=== PATIENT | male | born 1965 | race African-American/Black ===

== ENCOUNTER 2022-12-07 10:36 | Inpatient (IN) | payer OTHER ==
[2022-12-07] MEDS ORDERED: LACTATED RINGERS SOLUTION 1000 ML INFUS.BAG IV ONE ×3 (11:29→20:43)
[2022-12-07] MEDS ORDERED: ONDANSETRON 4 MG/2 ML VIAL IVPUSH ONE (11:31)
[2022-12-07] MEDS ORDERED: ONDANSETRON 4 MG/2 ML VIAL ONE (11:53)
[2022-12-07 12:18] LABS: VENOUS BASE EXCESS -14.8 mmol/L (-2-2); VENOUS PCO2 35.1 mmHg (38-52)
[2022-12-07 12:19] LABS: VENOUS PH 7.171 (7.310-7.410)
[2022-12-07 12:21] LABS: BASO % 0.4 % (0-2.0); HEMATOCRIT 51.9 % (35.4-49); HEMOGLOBIN 17.8 GM/dL (11.7-16.9); LYMPH % 12.2 % (8-40); MCH 28.2 pg (25.7-33.7); MCHC 34.3 g/dl (32.0-35.9); MEAN CELL VOLUME 82.1 fl (80-96); MEAN PLT VOLUME 9.9 fl (7.5-11.1); MONO % 4.8 % (3.8-10.2); NEUT % 82.6 % (42.8-82.8); PLATELET COUNT 412 10^3/uL (134-434); RBC 6.33 M/mm3 (4.00-5.60); RDW 14.6 % (11.9-15.9); WHITE BLOOD COUNT 10.5 K/mm3 (4.0-10.0)
[2022-12-07 12:46] LABS: CHLORIDE 105 mmol/L (98-107); SODIUM 141 mmol/L (136-145)
[2022-12-07] MEDS ORDERED: SODIUM CHLORIDE 1,000 ML with POTASSIUM CHLORIDE 30 MEQ IV STA (12:49)
[2022-12-07 12:53] LABS: ALBUMIN 3.8 g/dl (3.4-5.0); ANION GAP 22 MMOL/L (8-16); BLOOD UREA NITROGEN 34.8 mg/dL (7-18); CALCIUM 10.6 mg/dL (8.5-10.1); CO2 14 mmol/L (21-32); LACTIC ACID 3.5 mmol/L (0.4-2.0); MAGNESIUM 2.6 mg/dL (1.8-2.4)
[2022-12-07] MEDS ORDERED: POTASSIUM CHLORIDE 30 MEQ in SODIUM CHLORIDE 1,000 ML IV SCH (12:53)
[2022-12-07 12:56] LABS: CREATININE 1.9 mg/dL (0.55-1.3); PHOSPHOROUS 4.6 mg/dL (2.5-4.9); SGOT/AST 6 U/L (15-37); SGPT/ALT 19 U/L (13-61)
[2022-12-07 12:58] LABS: TOT PROT 8.9 g/dl (6.4-8.2)
[2022-12-07 13:00] LABS: ALK PHOS 139 U/L (45-117); BILIRUBIN,TOTAL 0.9 mg/dL (0.2-1)
[2022-12-07 13:06] LABS: GLUCOSE,RANDOM 468 mg/dL (74-106)
[2022-12-07] MEDS ORDERED: DEXTROSE 50%-WATER - 25 GM/50 ML VIAL IVPUSH PRN (13:16)
[2022-12-07] MEDS ORDERED: INSULIN REGULAR 100 UNITS in SODIUM CHLORIDE 99 ML IVPB SCH ×3 (13:30→18:35)
[2022-12-07 13:54] LABS: HIV INTERPRETATION NEGATIVE (NEGATIVE)
[2022-12-07] MEDS ORDERED: INSULIN REGULAR HUMAN 100 UNITS/ML *VIAL* (FOR IVP) IVPUSH ONE (14:53)
[2022-12-07] MEDS ORDERED: SODIUM CHLORIDE 1,000 ML IV SCH (15:15)
[2022-12-07 15:38] LABS: LACTIC ACID 2.8 mmol/L (0.4-2.0)
[2022-12-07 16:01] LABS: EPI CELLS 6 /uL (0-25.1); HYALINE CASTS 0 /uL (0-3.1); URINE APPEARANCE CLEAR; URINE BACTERIA 199 /uL (0-1359); URINE BILIRUBIN NEGATIVE (NEGATIVE); URINE COLOR YELLOW; URINE GLUCOSE (UA) 3+ (NEGATIVE); URINE KETONE 3+ (NEGATIVE); URINE LEUK ESTERASE TRACE (NEGATIVE); URINE NITRITE NEGATIVE (NEGATIVE); URINE PROTEIN 1+ (NEGATIVE); URINE RBC 115 /uL (0-23.9); URINE UROBILINOGEN 0.2 mg/dL (0.2-1.0); URINE WBC 232 /uL (0-25.8)
[2022-12-07 17:26] LABS: ARTERIAL BLD GAS O2 SATURATION 96.2 % (95-98); ARTERIAL BLOOD GAS PO2 91.5 mmHg (80-100); ARTERIAL BLOOD GAS pH 7.284 (7.350-7.450)
[2022-12-07 17:27] LABS: ALLENS TEST POSITIVE
[2022-12-07] MEDS ORDERED: DEXTROSE 5%-0.45% SALINE 1,000 ML IV SCH (18:45)
[2022-12-07] MEDS ORDERED: SODIUM CHLORIDE 0.45% 1,000 ML IV SCH (18:45)
[2022-12-07 19:40] LABS: BLOOD UREA NITROGEN 32.8 mg/dL (7-18); CALCIUM 9.9 mg/dL (8.5-10.1)
[2022-12-07 19:41] LABS: ALBUMIN 3.4 g/dl (3.4-5.0); BLOOD UREA NITROGEN 32.5 mg/dL (7-18); CALCIUM 9.9 mg/dL (8.5-10.1)
[2022-12-07 19:44] LABS: CREATININE 1.5 mg/dL (0.55-1.3)
[2022-12-07 19:45] LABS: BILIRUBIN,TOTAL 0.5 mg/dL (0.2-1); CREATININE 1.5 mg/dL (0.55-1.3)
[2022-12-07] MEDS: INSULIN (LEVEMIR) 100 UNITS/ML UNITS SQ SCH (21:08)
[2022-12-07] MEDS: HEPARIN NA (PORCINE) 5,000 UNITS/ML 1ML VIAL SQ SCH (21:16)
[2022-12-07] MEDS: MUPIROCIN 2% TOPICAL OINTMENT FOR DECOLONIZATION NS SCH (21:16)
[2022-12-07] MEDS: CHLORHEXIDINE GLUCONATE 4% CLEANSER FOR DECOLONIZATION TP SCH (21:17)
[2022-12-07] MEDS ORDERED: INSULIN (LEVEMIR) 100 UNITS/ML UNITS SQ SCH (22:00)
[2022-12-08] MEDS ORDERED: INSULIN (NOVOLOG) ASPART 100 UNITS/ML 10ML VIAL SQ ONE (00:54)
[2022-12-08] MEDS: NYSTATIN 500,000 UNITS/5 ML SUSPENSION PO SCH ×5 (01:05→23:45)
[2022-12-08] MEDS: INSULIN (LEVEMIR) 100 UNITS/ML UNITS SQ SCH ×2 (06:23→21:35)
[2022-12-08] MEDS: HEPARIN NA (PORCINE) 5,000 UNITS/ML 1ML VIAL SQ SCH ×3 (06:23→21:35)
[2022-12-08] MEDS: INSULIN SLIDING SCALE (NOVOLOG) 1 VIAL SQ SCH ×4 (06:23→21:36)
[2022-12-08 07:18] LABS: BASO % 0.5 % (0-2.0); EOS % 0.2 % (0-4.5); HEMATOCRIT 41.1 % (35.4-49); HEMOGLOBIN 14.6 GM/dL (11.7-16.9); LYMPH % 28.5 % (8-40); MCH 28.3 pg (25.7-33.7); MCHC 35.5 g/dl (32.0-35.9); MEAN CELL VOLUME 79.6 fl (80-96); MEAN PLT VOLUME 9.5 fl (7.5-11.1); MONO % 9.9 % (3.8-10.2); NEUT % 60.9 % (42.8-82.8); PLATELET COUNT 314 10^3/uL (134-434); RBC 5.17 M/mm3 (4.00-5.60); RDW 14.6 % (11.9-15.9)
[2022-12-08 07:40] LABS: CALCIUM 9.6 mg/dL (8.5-10.1); MAGNESIUM 2.3 mg/dL (1.8-2.4)
[2022-12-08 07:42] LABS: CREATININE 1.3 mg/dL (0.55-1.3)
[2022-12-08 07:43] LABS: PHOSPHOROUS 1.2 mg/dL (2.5-4.9)
[2022-12-08 07:44] LABS: BILIRUBIN,TOTAL 0.7 mg/dL (0.2-1); TOT PROT 6.8 g/dl (6.4-8.2)
[2022-12-08] MEDS: MUPIROCIN 2% TOPICAL OINTMENT FOR DECOLONIZATION NS SCH ×2 (11:00→21:35)
[2022-12-08] MEDS ORDERED: POTASSIUM PHOSPHATE 30 MM in DEXTROSE 5%-WATER - 500 ML IVPB ONE (15:14)
[2022-12-08 15:41] VITALS: BMI 20.9
[2022-12-08] MEDS: CHLORHEXIDINE GLUCONATE 4% CLEANSER FOR DECOLONIZATION TP SCH (21:35)
[2022-12-09] MEDS: NYSTATIN 500,000 UNITS/5 ML SUSPENSION PO SCH ×3 (06:40→17:32)
[2022-12-09] MEDS: HEPARIN NA (PORCINE) 5,000 UNITS/ML 1ML VIAL SQ SCH ×3 (06:40→22:04)
[2022-12-09] MEDS: INSULIN SLIDING SCALE (NOVOLOG) 1 VIAL SQ SCH ×4 (06:41→22:06)
[2022-12-09] MEDS: INSULIN (LEVEMIR) 100 UNITS/ML UNITS SQ SCH ×2 (06:41→22:05)
[2022-12-09] MEDS: MUPIROCIN 2% TOPICAL OINTMENT FOR DECOLONIZATION NS SCH ×2 (09:47→22:00)
[2022-12-09] MEDS ORDERED: DULoxetine HCL 20 MG CAPSULE.DR PO SCH (10:00)
[2022-12-09 11:09] LABS: HEMATOCRIT 38.2 % (35.4-49); HEMOGLOBIN 13.5 GM/dL (11.7-16.9); MCH 28.3 pg (25.7-33.7); MCHC 35.4 g/dl (32.0-35.9); MEAN PLT VOLUME 9.5 fl (7.5-11.1); PLATELET COUNT 233 10^3/uL (134-434); RBC 4.77 M/mm3 (4.00-5.60); WHITE BLOOD COUNT 5.8 K/mm3 (4.0-10.0)
[2022-12-09 11:34] LABS: CALCIUM 8.8 mg/dL (8.5-10.1)
[2022-12-09 11:35] LABS: ALBUMIN 2.6 g/dl (3.4-5.0); BLOOD UREA NITROGEN 25.2 mg/dL (7-18)
[2022-12-09 11:38] LABS: CREATININE 0.9 mg/dL (0.55-1.3); PHOSPHOROUS 3.1 mg/dL (2.5-4.9)
[2022-12-09 11:39] LABS: BILIRUBIN,TOTAL 0.8 mg/dL (0.2-1)
[2022-12-09] MEDS ORDERED: POTASSIUM CHLORIDE ORAL LIQUID 20 MEQ/15 ML PO ONE (12:16)
[2022-12-09 16:02] VITALS: RESP 18
[2022-12-09] MEDS ORDERED: INSULIN (NOVOLOG) ASPART 100 UNITS/ML 10ML VIAL SQ SCH (16:45)
[2022-12-09] MEDS ORDERED: INSULIN (NOVOLOG) ASPART 100 UNITS/ML 10ML VIAL ONE (21:44)
[2022-12-09] MEDS: CHLORHEXIDINE GLUCONATE 4% CLEANSER FOR DECOLONIZATION TP SCH (22:00)
[2022-12-10] MEDS: NYSTATIN 500,000 UNITS/5 ML SUSPENSION PO SCH ×4 (01:18→17:10)
[2022-12-10] MEDS: HEPARIN NA (PORCINE) 5,000 UNITS/ML 1ML VIAL SQ SCH ×3 (06:17→22:16)
[2022-12-10] MEDS: INSULIN (LEVEMIR) 100 UNITS/ML UNITS SQ SCH ×3 (06:24→22:11)
[2022-12-10] MEDS: INSULIN (NOVOLOG) ASPART 100 UNITS/ML 10ML VIAL SQ SCH ×3 (06:25→16:44)
[2022-12-10] MEDS: INSULIN SLIDING SCALE (NOVOLOG) 1 VIAL SQ SCH ×4 (06:25→22:12)
[2022-12-10] MEDS: DULoxetine HCL 20 MG CAPSULE.DR PO SCH (09:11)
[2022-12-10 10:00] LABS: BASO % 0.5 % (0-2.0); EOS % 0.4 % (0-4.5); HEMATOCRIT 45.5 % (35.4-49); HEMOGLOBIN 15.5 GM/dL (11.7-16.9); LYMPH % 49.1 % (8-40); MCH 27.8 pg (25.7-33.7); MEAN CELL VOLUME 81.8 fl (80-96); MEAN PLT VOLUME 9.7 fl (7.5-11.1); MONO % 7.9 % (3.8-10.2); NEUT % 42.1 % (42.8-82.8); PLATELET COUNT 216 10^3/uL (134-434); RBC 5.57 M/mm3 (4.00-5.60); RDW 14.5 % (11.9-15.9); WHITE BLOOD COUNT 7.7 K/mm3 (4.0-10.0)
[2022-12-10 10:22] LABS: SODIUM 139 mmol/L (136-145)
[2022-12-10 10:23] LABS: CALCIUM 9.3 mg/dL (8.5-10.1); CO2 31 mmol/L (21-32); GLUCOSE,RANDOM 107 mg/dL (74-106)
[2022-12-10 10:24] LABS: BLOOD UREA NITROGEN 22.5 mg/dL (7-18)
[2022-12-10 10:27] LABS: CREATININE 0.8 mg/dL (0.55-1.3)
[2022-12-10 10:29] LABS: ANION GAP 0 MMOL/L (8-16); CHLORIDE 108 mmol/L (98-107)
[2022-12-10 12:43] LABS: CALCIUM 8.9 mg/dL (8.5-10.1)
[2022-12-10 12:44] LABS: BLOOD UREA NITROGEN 23.1 mg/dL (7-18)
[2022-12-10 12:47] LABS: CREATININE 0.8 mg/dL (0.55-1.3)
[2022-12-10] MEDS ORDERED: INSULIN (NOVOLOG) ASPART 100 UNITS/ML 10ML VIAL ONE ×2 (17:30→20:39)
[2022-12-11] MEDS: NYSTATIN 500,000 UNITS/5 ML SUSPENSION PO SCH ×3 (00:30→13:09)
[2022-12-11] MEDS: HEPARIN NA (PORCINE) 5,000 UNITS/ML 1ML VIAL SQ SCH ×2 (06:20→13:09)
[2022-12-11] MEDS: INSULIN SLIDING SCALE (NOVOLOG) 1 VIAL SQ SCH ×2 (06:21→11:55)
[2022-12-11] MEDS: INSULIN (NOVOLOG) ASPART 100 UNITS/ML 10ML VIAL SQ SCH ×2 (06:23→11:54)
[2022-12-11] MEDS: INSULIN (LEVEMIR) 100 UNITS/ML UNITS SQ SCH (06:23)
[2022-12-11] MEDS: DULoxetine HCL 20 MG CAPSULE.DR PO SCH (09:19)
[2022-12-11 13:27] VITALS: BP 105/64; PULSE 86; TEMP 97.8
== END 2022-12-11 14:36 | disposition home or self-care (01) | DRG 420 ==
LOC: JER 10:36 → JERBED 12:55 → JICU 15:50 → J6S 12-09 15:34
PROVIDERS: ADMIT Internal Medicine Pulmonary Disease; ATTEND Internal Medicine
DX: E11.10 Type 2 diabetes mellitus with ketoacidosis without coma (principal); N17.9 Acute kidney failure, unspecified; F32.A Depression, unspecified; K12.2 Cellulitis and abscess of mouth; R64 Cachexia; Z68.20 Body mass index [BMI] 20.0-20.9, adult
CPT/HCPCS: 0241U-QW; 36415; 36600; 71045-TC-FY; 71260-TC; 74160-TC; 76775-TC; 76856-TC; 80048; 80053; 81003; 82010; 82550; 82803; 82962; 83036; 83605; 83690; 83735; 84100; 84439; 84443; 84484; 85025; 85027; 86850; 86900; 86901; 87086; 87389; 93005; 93010; 97116-GP; 97162-GP; 99285-25; J1644; Q9967